=== PATIENT | male | born 1960 | race Caucasian/White ===

== ENCOUNTER → 2021-09-12 | Day surgery (SDC) | payer MEDICARE ==
[~2021-09-12] MED LIST: ARICEPT5 MG PO; ASPIRIN81 MG PO; ATORVASTATIN CA20 MG PO; BASAGLAR K100 UNIT/1 SQ; CLONAZEPAM0.5 MG PO; COREG6.25 MG PO; DEXMEDETOMIDINE HCL 2 ML ONE; FEROSUL325 MG PO; FOLIC ACID0.4 MG PO; KEPPRA500 MG PO; LACTULOSE20 GM/30 M PO; LAMOTRIGINE100 MG PO; LEVOTHYROXINE50 MCG PO; MAGNESIUM OXID400 MG PO; MILK OF MA400 MG/5 M PO; MIRALAX17 GM PO; MIRTAZAPINE7.5 MG PO; MULTI-VITAMIN1 EACH PO; NEURONTIN300 MG PO; NOVOLOG100 UNIT/1 SQ; ONDANSETRON ODT4 MG PO; OR PHACO EYE KIT ONE; OXCARBAZEPINE300 MG PO; PLAVIX75 MG PO; PREOP PHACO EYE KIT ONE; PROTONIX20 MG PO; RENVELA800 MG PO; SENSIPAR30 MG PO; SODIUM CHLORIDE 0.9% 250ML 250 ML ONE; ULTRAM50 MG PO; VITAMIN C500 M1 PO
[2021-09-12 11:54] LABS: BASOPHILS # (AUTO) 0.1 (0.0-0.1); BASOPHILS % 1.1 % (0.0-1.0); EOSINOPHILS # (AUTO) 1.4 (0.0-0.4); HEMATOCRIT 37.6 % (38.2-49.6); HEMOGLOBIN 11.7 g/dL (14.0-18.0); LYMPHOCYTES % 20.5 % (18.0-39.1); MEAN CORPUSCULAR HEMOGLOBIN 32.2 pg (28-32); MEAN CORPUSCULAR HGB CONC 31.1 g/dL (31-35); MEAN CORPUSCULAR VOLUME 103.6 fL (81-99); MONOCYTES # (AUTO) 0.9 (0.2-0.8); MONOCYTES % 9.2 % (4.4-11.3); NEUTROPHILS # (AUTO) 5.4 (2.1-6.9); PLATELET COUNT 225 x10e3/uL (140-360); RED BLOOD COUNT 3.63 x10e6/uL (4.3-5.7); RED CELL DISTRIBUTION WIDTH 16.6 % (11.7-14.4)
[2021-09-12 12:08] LABS: INR 0.94; PROTHROMBIN TIME 13.2 seconds (11.9-14.5)
[2021-09-12 12:09] LABS: PARTIAL THROMBOPLASTIN TIME 29.4 seconds (23.8-35.5)
[2021-09-12 12:17] LABS: ANION GAP 20.4 mmol/L (8-16); CALCIUM 8.8 mg/dL (8.4-10.2); CREATININE, SERUM 4.93 mg/dL (0.72-1.25); POTASSIUM 5.4 mmol/L (3.5-5.1)
[2021-09-12 15:05] VITALS: BP 119/72
== END | disposition home or self-care (01) ==
LOC: OR 10:36
PROVIDERS: ATTEND Ophthalmology
DX: H25.042 Posterior subcapsular polar age-related cataract, left eye (principal); H25.12 Age-related nuclear cataract, left eye; E11.22 Type 2 diabetes mellitus with diabetic chronic kidney disease; I13.2 Hypertensive heart and chronic kidney disease with heart failure and with stage 5 chronic kidney disease, or end stage renal disease; N18.6 End stage renal disease; I50.9 Heart failure, unspecified; I25.10 Atherosclerotic heart disease of native coronary artery without angina pectoris; E78.5 Hyperlipidemia, unspecified; K21.9 Gastro-esophageal reflux disease without esophagitis; E66.9 Obesity, unspecified; E03.9 Hypothyroidism, unspecified; I69.351 Hemiplegia and hemiparesis following cerebral infarction affecting right dominant side; G40.909 Epilepsy, unspecified, not intractable, without status epilepticus; H91.90 Unspecified hearing loss, unspecified ear; F41.9 Anxiety disorder, unspecified; F32.A Depression, unspecified; F03.90 Unspecified dementia, unspecified severity, without behavioral disturbance, psychotic disturbance, mood disturbance, and anxiety; Z20.822 Contact with and (suspected) exposure to COVID-19; Z79.02 Long term (current) use of antithrombotics/antiplatelets; Z79.82 Long term (current) use of aspirin; Z79.4 Long term (current) use of insulin; Z79.899 Other long term (current) drug therapy; Z99.2 Dependence on renal dialysis; Z68.32 Body mass index [BMI] 32.0-32.9, adult; Z87.01 Personal history of pneumonia (recurrent)
CPT/HCPCS: 36415; 66984; 80048; 82948; 85025; 85610; 85730; 93005; J7050; U0002

== ENCOUNTER → 2021-09-26 | Day surgery (SDC) | payer MEDICARE ==
[~2021-09-26] MED LIST changes: -DEXMEDETOMIDINE HCL 2 ML ONE; -SODIUM CHLORIDE 0.9% 250ML 250 ML ONE; +SODIUM CHLORIDE 0.9% 500ML 500 ML ONE
[2021-09-26 12:08] LABS: ANION GAP 22.8 mmol/L (8-16); CALCIUM 8.9 mg/dL (8.4-10.2); CREATININE, SERUM 8.33 mg/dL (0.72-1.25); POTASSIUM 5.8 mmol/L (3.5-5.1)
[2021-09-26 14:30] VITALS: BP 122/47
== END | disposition home or self-care (01) ==
LOC: OR 10:32
PROVIDERS: ATTEND Ophthalmology
DX: H25.11 Age-related nuclear cataract, right eye (principal); E11.22 Type 2 diabetes mellitus with diabetic chronic kidney disease; I12.0 Hypertensive chronic kidney disease with stage 5 chronic kidney disease or end stage renal disease; N18.6 End stage renal disease; I25.10 Atherosclerotic heart disease of native coronary artery without angina pectoris; E03.9 Hypothyroidism, unspecified; I69.351 Hemiplegia and hemiparesis following cerebral infarction affecting right dominant side; Z20.822 Contact with and (suspected) exposure to COVID-19; Z99.2 Dependence on renal dialysis; Z79.02 Long term (current) use of antithrombotics/antiplatelets; Z79.82 Long term (current) use of aspirin; Z79.4 Long term (current) use of insulin; Z79.899 Other long term (current) drug therapy
CPT/HCPCS: 36415; 66982; 80048; 82948; J7040; U0002